=== PATIENT | male | born 2000 | race African-American/Black ===

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

== ENCOUNTER 2024-10-04 20:30 | Emergency (ER) | payer BC, SELFPAY ==
[2024-10-04] MEDS ORDERED: Ibuprofen 200 MG TAB ONE (21:25)
== END 2024-10-04 22:00 | disposition home or self-care (01) ==
LOC: NAV ERS 20:30
DX: B34.9 Viral infection, unspecified (principal); I10 Essential (primary) hypertension
CPT/HCPCS: 87428; 99283